=== PATIENT | female | born 1970 | race Hispanic/Latino ===

== ENCOUNTER 2018-10-24 01:00 | Emergency (ER) | payer OTHER ==
--- OUTSIDE RECORDS SUMMARY | 2018-10-24 01:02 | XMS REPORT ---
:1970 [facility] Address [address] [place] [address] Care Team Providers Name Role Phone Unavailable Unavailable Unavailable Problems This patient has no known problems. Allergies, Adverse Reactions, Alerts This patient has no known allergies or adverse reactions. Medications This patient has no known medications.
--- NOTE | 2018-10-24 02:20 | ER ---
Nurse's Notes [facility] Name: Shavonne Olmos Age: 48 yrs Sex: Female : 1970 Arrival Date: 10/24/2018 Time: 01:03 Bed Waiting Private MD: Darius Albert E Diagnosis: Presentation: 10/24 01:08 Presenting complaint: Patient states: "I haven't taken my blood pressure medication in jd3 2 days because I ran out. I am not having high blood pressure and feeling short of breath with my chronic conditions.". Transition of care: patient was not received from another setting of care. Onset of symptoms was October 24, 2018. Risk Assessment: Do you want to hurt yourself or someone else? Patient reports no desire to harm self or others. Initial Sepsis Screen: Does the patient meet any 2 criteria? No. Patient's initial sepsis screen is negative. Does the patient have a suspected source of infection? No. Patient's initial sepsis screen is negative. Care prior to arrival: None. 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 - Social history:: Smoking status: Patient/guardian denies using tobacco. - Ebola Screening: : Patient negative for fever greater than or equal to 101.5 degrees Fahrenheit, and additional compatible Ebola Virus Disease symptoms. Assessment: 02:18 General: Pt states "I don't want to be seen by a doctor. I just wanted my blood ed1 pressure checked. I am okay. I am going to go home and go to sleep.". Vital Signs: 01:10 BP 165 / 100; Pulse 75; Resp 17 S; Temp 98.3(O); Pulse Ox 100% on R/A; Weight 99.79 kg jd3 (R); Height 5 ft. 2 in. (157.48 cm) (R); Pain 6/10; 01:10 Body Mass Index 40.24 (99.79 kg, 157.48 cm) jd3 ED Course: 01:03 Patient arrived in ED. ds1 01:03 Darius Albert MD is Private Physician. ds1 01:09 Triage completed. jd3 01:11 Arm band placed on. jd3 Administered Medications: No medications were administered Outcome: 02:18 Eloped from patient exam room, before seeing physician Time discovered patient gone: ed1 October 24, 2018 at 02:19 02:18 Condition: stable 02:18 Discharge instructions given to patient. 02:20 Patient left the ED. ed1 Signatures: Jyotsna Johnson ds1 Nancy Sanchez RN RN ed1 Cb Goode RN RN jd3 Corrections: (The following items were deleted from the chart) 01:13 01:08 Presenting complaint: Patient states: "I haven't taken my blood pressure jd3 medication in 2 days because I ran out. I am not having high blood pressure and chest pains." jd3
[2018-10-24 02:24] VITALS: BP 165/100; TEMP 98.3; O2SAT 100
== END 2018-10-24 02:20 | disposition left against medical advice (07) ==
LOC: ER 01:00
DX: Z53.21 Procedure and treatment not carried out due to patient leaving prior to being seen by health care provider (principal); I10 Essential (primary) hypertension; F41.9 Anxiety disorder, unspecified
CPT/HCPCS: 99281

== ENCOUNTER 2019-01-28 14:45 | Observation (INO) | payer OTHER, SELFPAY ==
--- OUTSIDE RECORDS SUMMARY | 2019-01-28 14:48 | XMS REPORT ---
:1970 [facility] Address [address] [place] [address] Dr. [address] [place] [id number] Care Team Providers Name Role Phone Unavailable Unavailable Unavailable Problems This patient has no known problems. Allergies, Adverse Reactions, Alerts This patient has no known allergies or adverse reactions. Medications This patient has no known medications.
[2019-01-28 15:43] LABS: Absolute Lymphocytes (CBC) 2.1 K/uL (0.7-4.9); Basophils % 0.3 % (0-1.3); Eosinophils % 2.1 % (0-4.4); Hematocrit 38.7 % (36.0-45.0); MPV 9.2 fL (7.6-11.3); RBC Red Blood Cell Count 4.59 M/uL (3.86-4.86)
[2019-01-28 15:47] LABS: Urine Blood NEGATIVE (NEG); Urine Glucose NEGATIVE (NEG); Urine Protein NEGATIVE (NEG); Urine pH 5.5 (5.0-7.0)
[2019-01-28] MEDS ORDERED: ONDANSETRON 4 MG/2 ML VIAL ONE ×2 (16:00→18:34)
[2019-01-28] MEDS ORDERED: MORPHINE 4 MG/ML SYR ONE ×2 (16:00→17:39)
[2019-01-28] MEDS ORDERED: NA CHLORIDE 0.9% 1,000 ML ONE (16:00)
[2019-01-28] MEDS ORDERED: FAMOTIDINE 20 MG/2 ML VIAL IV ONE (16:00)
[2019-01-28] MEDS ORDERED: PIPER/TAZO/NS 3.375gm 3.375 GM/100 ML BAG ONE (16:01)
[2019-01-28 16:14] LABS: ALT/SGPT 35 U/L (12-78); AST/SGOT 17 U/L (15-37); Albumin 3.6 g/dL (3.4-5.0); Alkaline Phosphatase 65 U/L (45-117); BUN Blood Urea Nitrogen 23 mg/dL (7-18); Bicarbonate 30 mmol/L (21-32); Bilirubin Direct < 0.1 mg/dL (0-0.2); Bilirubin Total 0.3 mg/dL (0.2-1.0); Glucose Level 170 mg/dL (74-106); Lipase 146 U/L (73-393); Magnesium 2.4 mg/dL (1.8-2.4); NT PRO-BNP 147 pg/mL (<125); Potassium 3.6 mmol/L (3.5-5.1); Protein, Total 7.6 g/dL (6.4-8.2); Sodium Level 143 mmol/L (136-145); Troponin (Emerg Dept Use Only) < 0.02 ng/mL (0.0-0.045)
--- NOTE | 2019-01-28 16:28 | RAD REPORT ---
EXAM DESCRIPTION: RAD - Chest Single View - 01/28/2019 4:06 pm CLINICAL HISTORY: Abdominal pain, abdominal distention COMPARISON: July 2018 TECHNIQUE: AP portable chest image was obtained 1559 hours . FINDINGS: Lungs are clear. Lung markings match comparison. Heart and vasculature are normal. No shonna urable pleural effusion and no pneumothorax. No acute bony abnormality seen. No acute aortic findings suspected. IMPRESSION: No acute cardiopulmonary process. No significant interval change
--- NOTE | 2019-01-28 16:39 | ER ---
Nurse's Notes [facility] Name: Shavonne Olmos Age: 48 yrs Sex: Female : 1970 Arrival Date: 01/28/2019 Time: 14:[address] Private MD: Darius Albert E Diagnosis: Abdominal tenderness;Cholelithiasis;Cholecystitis;Obesity, unspecified Presentation: 01/28 14:53 Presenting complaint: Patient states: "I HAD AN ULTRASOUND WITH DR COVARRUBIAS AND I HAVE bp GALLSTONES. I CAN'T TAKE THE PAIN ANYMORE.". Transition of care: patient was not received from another setting of care. Onset of symptoms is unknown. Risk Assessment: Do you want to hurt yourself or someone else? Patient reports no desire to harm self or others. Initial Sepsis Screen: Does the patient meet any 2 criteria? No. Patient's initial sepsis screen is negative. Does the patient have a suspected source of infection? No. Patient's initial sepsis screen is negative. Care prior to arrival: None. 14:53 Method Of Arrival: Ambulatory bp 14:53 Acuity: SONAM 3 bp Triage Assessment: 18:59 General: Behavior is calm, cooperative. 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 - Social history:: Smoking status: Patient/guardian denies using tobacco. - Ebola Screening: : No symptoms or risks identified at this time. - Family history:: not pertinent. Screenin:42 Abuse screen: Denies threats or abuse. Denies injuries from another. Nutritional iw screening: No deficits noted. Tuberculosis screening: No symptoms or risk factors identified. Fall Risk IV access (20 points). Assessment: 16:00 General: Appears uncomfortable. Pain: Complains of pain in epigastric area, right upper iw quadrant and left upper quadrant. Neuro: Level of Consciousness is awake, alert, obeys commands, Oriented to person, place, time, situation, Moves all extremities. Full function. Cardiovascular: Capillary refill < 3 seconds in bilateral fingers Patient's skin is warm and dry. Respiratory: Respiratory effort is even, unlabored, Respiratory pattern is regular, symmetrical. GI: Bowel sounds present X 4 quads. Abd is soft X 4 quads Abdomen is tender to palpation in right upper quadrant and left upper quadrant Reports upper abdominal pain. : Denies burning with urination. Derm: Skin is intact, is healthy with good turgor. Musculoskeletal: Range of motion: intact in all extremities. 17:30 Reassessment: Patient appears in no apparent distress at this time. Patient and/or iw family updated on plan of care and expected duration. Pain level reassessed. Patient is alert, oriented x 3, equal unlabored respirations, skin warm/dry/pink. pt still c/o upper abd pain 8/10, Dr. Reese notified, verbal order for repeat morphine, given now. 18:59 Reassessment: Patient appears in no apparent distress at this time. Patient and/or iw family updated on plan of care and expected duration. Pain level reassessed. Patient is alert, oriented x 3, equal unlabored respirations, skin warm/dry/pink. Vital Signs: 14:54 BP 105 / 66; Pulse 63; Resp 18; Temp 98.4; Pulse Ox 97% ; Weight 102.97 kg; Height 5 bp ft. 1 in. (154.94 cm); 17:41 BP 135 / 69; Pulse 59; Resp 16 S; Pulse Ox 99% on R/A; Pain 8/10; iw 19:00 BP 118 / 97; Pulse 64; Resp 16; Pulse Ox 100% on R/A; Pain 7/10; iw 20:00 BP 116 / 96; Pulse 66; Resp 15; Temp 98; Pulse Ox 98% on R/A; rv 21:00 BP 114 / 97; Pulse 65; Resp 16; Pulse Ox 98% on R/A; rv 21:30 BP 121 / 76; Pulse 66; Resp 17; Pulse Ox 98% on R/A; rv 14:54 Body Mass Index 42.89 (102.97 kg, 154.94 cm) bp ED Course: 14:48 Patient arrived in ED. 14:48 Darius Albert MD is Private Physician. mr 14:53 Triage completed. bp 14:54 Arm band placed on right wrist. bp 14:56 Rell Reese MD is Attending Physician. millie 15:00 Patient has correct armband on for positive identification. iw 15:03 Rachel Palacios, RN is Primary Nurse. iw 15:27 Missed attempt(s): 20 gauge in left antecubital area. lt1 15:28 Initial lab(s) drawn, by me, sent to lab. Inserted saline lock: 22 gauge in right lt1 antecubital area, using aseptic technique. 15:35 EKG done, by distribution engineering technologist. lt1 16:09 Chest Single View In Process Unspecified. EDMS 16:[address] nj 16:37 Romelia Licea MD is Hospitalizing Provider. millie 16:39 CT Abd/Pelvis - IV Contrast Only In Process Unspecified. EDMS 16:39 CT completed. Patient tolerated procedure well. Patient moved back from CT. nj 18:58 No provider procedures requiring assistance completed. Patient admitted, IV remains in iw place. Administered Medications: 16:13 Drug: NS 0.9% 1000 ml Route: IV; Rate: 1 bolus; Site: right antecubital; iw 16:13 Drug: morphine 4 mg Route: IVP; Site: right antecubital; iw 20:27 Follow up: Response: Pain is decreased rv 16:14 Drug: Pepcid 20 mg Route: IVP; Site: right antecubital; iw 20:26 Follow up: Response: No adverse reaction rv 16:14 Drug: Zosyn 3.375 grams Route: IVPB; Infused Over: 60 mins; Site: right antecubital; iw 20:26 Follow up: IV Status: Completed infusion rv 16:16 Drug: Zofran 4 mg Route: IVP; Site: right antecubital; iw 20:27 Follow up: Response: No adverse reaction rv 17:40 Drug: morphine 4 mg Route: IVP; Site: right antecubital; iw 20:26 Follow up: Response: No adverse reaction rv 18:22 Drug: Zofran 4 mg Route: IVP; Site: right antecubital; ae4 20:26 Follow up: Response: No adverse reaction rv Outcome: 16:38 Decision to Hospitalize by Provider. millie 21:51 Admitted to Med/surg accompanied by tech, via wheelchair, room 206, with chart, Report rv called to ko leung 21:51 Condition: stable 21:51 Instructed on the need for admit. 21:51 Patient left the ED. rv Signatures: Dispatcher [employer] EDMS Rell Reese MD MD cha Rivera, Mary mr Rachel Palacios, RN RN Axel Mccollum Brian, RN RN Suleiman Iraheta RN RN Farrah Malone 1 Earnest Miller RN RN ae4
--- NOTE | 2019-01-28 16:39 | EDPHYS ---
Physician Documentation [facility] Name: Shavonne Olmos Age: 48 yrs Sex: Female : 1970 Arrival Date: 01/28/2019 Time: 14:[address] Private MD: Darius Albert E ED Physician Rell Reese HPI: 01/28 15:23 This 48 yrs old Female presents to ER via Ambulatory with complaints of millie Abdominal Pain. 15:23 The patient presents with abdominal pain in the epigastric area, in the upper abdomen. millie Onset: The symptoms/episode began/occurred 2 day(s) ago. The symptoms radiate to Associated signs and symptoms: none. Modifying factors: The symptoms are alleviated by nothing, the symptoms are aggravated by nothing. Severity of pain: At its worst the pain was mild moderate in the emergency department the pain is unchanged. The patient has not experienced similar symptoms in the past. 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 - Social history:: Smoking status: Patient/guardian denies using tobacco. - Ebola Screening: : No symptoms or risks identified at this time. - Family history:: not pertinent. ROS: 15:23 Constitutional: Negative for fever, chills, and weight loss, Eyes: Negative for injury, millie pain, redness, and discharge, ENT: Negative for injury, pain, and discharge, Neck: Negative for injury, pain, and swelling, Cardiovascular: Negative for chest pain, palpitations, and edema, Respiratory: Negative for shortness of breath, cough, wheezing, and pleuritic chest pain, Back: Negative for injury and pain, : Negative for injury, bleeding, discharge, and swelling, MS/Extremity: Negative for injury and deformity, Skin: Negative for injury, rash, and discoloration, Neuro: Negative for headache, weakness, numbness, tingling, and seizure, Psych: Negative for depression, anxiety, suicide ideation, homicidal ideation, and hallucinations, Allergy/Immunology: Negative for hives, rash, and allergies, Endocrine: Negative for neck swelling, polydipsia, polyuria, polyphagia, and marked weight changes, Hematologic/Lymphatic: Negative for swollen nodes, abnormal bleeding, and unusual bruising. 15:23 Abdomen/GI: Positive for abdominal pain, of the epigastric area, right upper quadrant and left upper quadrant. Exam: 15:23 Constitutional: This is a well developed, well nourished patient who is awake, alert, millie and in no acute distress. Head/Face: Normocephalic, atraumatic. Eyes: Pupils equal round and reactive to light, extra-ocular motions intact. Lids and lashes normal. Conjunctiva and sclera are non-icteric and not injected. Cornea within normal limits. Periorbital areas with no swelling, redness, or edema. ENT: Nares patent. No nasal discharge, no septal abnormalities noted. Tympanic membranes are normal and external auditory canals are clear. Oropharynx with no redness, swelling, or masses, exudates, or evidence of obstruction, uvula midline. Mucous membranes moist. Neck: Trachea midline, no thyromegaly or masses palpated, and no cervical lymphadenopathy. Supple, full range of motion without nuchal rigidity, or vertebral point tenderness. No Meningismus. Chest/axilla: Normal chest wall appearance and motion. Nontender with no deformity. No lesions are appreciated. Cardiovascular: Regular rate and rhythm with a normal S1 and S2. No gallops, murmurs, or rubs. Normal PMI, no JVD. No pulse deficits. Respiratory: Lungs have equal breath sounds bilaterally, clear to auscultation and percussion. No rales, rhonchi or wheezes noted. No increased work of breathing, no retractions or nasal flaring. Back: No spinal tenderness. No costovertebral tenderness. Full range of motion. Female : Normal external genitalia. Skin: Warm, dry with normal turgor. Normal color with no rashes, no lesions, and no evidence of cellulitis. MS/ Extremity: Pulses equal, no cyanosis. Neurovascular intact. Full, normal range of motion. Neuro: Awake and alert, GCS 15, oriented to person, place, time, and situation. Cranial nerves II-XII grossly intact. Motor strength 5/5 in all extremities. Sensory grossly intact. Cerebellar exam normal. Normal gait. Psych: Awake, alert, with orientation to person, place and time. Behavior, mood, and affect are within normal limits. 15:23 Abdomen/GI: Inspection: distension, Bowel sounds: normal, Palpation: mild abdominal tenderness, moderate abdominal tenderness, in the epigastric area, right upper quadrant and left upper quadrant, Liver: no appreciated palpable abnormalities, Hernia: not appreciated. Vital Signs: 14:54 BP 105 / 66; Pulse 63; Resp 18; Temp 98.4; Pulse Ox 97% ; Weight 102.97 kg; Height 5 bp ft. 1 in. (154.94 cm); 17:41 BP 135 / 69; Pulse 59; Resp 16 S; Pulse Ox 99% on R/A; Pain 8/10; iw 19:00 BP 118 / 97; Pulse 64; Resp 16; Pulse Ox 100% on R/A; Pain 7/10; iw 20:00 BP 116 / 96; Pulse 66; Resp 15; Temp 98; Pulse Ox 98% on R/A; rv 21:00 BP 114 / 97; Pulse 65; Resp 16; Pulse Ox 98% on R/A; rv 21:30 BP 121 / 76; Pulse 66; Resp 17; Pulse Ox 98% on R/A; rv 14:54 Body Mass Index 42.89 (102.97 kg, 154.94 cm) bp MDM: 14:56 Patient medically screened. [facility] 01/28 14:58 Order name: Basic Metabolic Panel; Complete Time: 16:35 [facility] 01/28 14:58 Order name: CBC with Diff; Complete Time: 16:35 [facility] 01/28 14:58 Order name: LFT's; Complete Time: 16:35 [facility] 01/28 14:58 Order name: Magnesium; Complete Time: 16:35 [facility] 01/28 14:58 Order name: NT PRO-BNP; Complete Time: 16:35 [facility] 01/28 14:58 Order name: PT-INR; Complete Time: 16:35 [facility] 01/28 14:58 Order name: Troponin (emerg Dept Use Only); Complete Time: 16:35 [facility] 01/28 14:58 Order name: Lipase; Complete Time: 16:35 [facility] 01/28 15:22 Order name: Urine --Ancillary (enter results); Complete Time: 16:35 ms 01/28 15:22 Order name: Urine Dipstick--Ancillary (enter results); Complete Time: 16:35 ms 01/28 15:27 Order name: CT Abd/Pelvis - IV Contrast Only [facility] 01/28 15:29 Order name: Chest Single View; Complete Time: 16:35 EDMS 01/28 17:23 Order name: Hepatobiliary System W/ Ph EDUT 01/28 14:58 Order name: EKG; Complete Time: 15:19 [facility] 01/28 14:58 Order name: Cardiac monitoring; Complete Time: 15:29 [facility] 01/28 14:58 Order name: EKG - Nurse/Tech; Complete Time: 15:35 [facility] 01/28 14:58 Order name: IV Saline Lock; Complete Time: 15:28 [facility] 01/28 14:58 Order name: Labs collected and sent; Complete Time: 15:35 [facility] 01/28 14:58 Order name: O2 Per Protocol; Complete Time: 15:29 [facility] 01/28 14:58 Order name: O2 Sat Monitoring; Complete Time: 15:29 [facility] 01/28 14:58 Order name: Urine Dipstick-Ancillary (obtain specimen); Complete Time: 15:28 [facility] 01/28 14:58 Order name: Urine Test (obtain specimen); Complete Time: 15:28 [facility] Administered Medications: 16:13 Drug: NS 0.9% 1000 ml Route: IV; Rate: 1 bolus; Site: right antecubital; iw 16:13 Drug: morphine 4 mg Route: IVP; Site: right antecubital; iw 20:27 Follow up: Response: Pain is decreased rv 16:14 Drug: Pepcid 20 mg Route: IVP; Site: right antecubital; iw 20:26 Follow up: Response: No adverse reaction rv 16:14 Drug: Zosyn 3.375 grams Route: IVPB; Infused Over: 60 mins; Site: right antecubital; iw 20:26 Follow up: IV Status: Completed infusion rv 16:16 Drug: Zofran 4 mg Route: IVP; Site: right antecubital; iw 20:27 Follow up: Response: No adverse reaction rv 17:40 Drug: morphine 4 mg Route: IVP; Site: right antecubital; iw 20:26 Follow up: Response: No adverse reaction rv 18:22 Drug: Zofran 4 mg Route: IVP; Site: right antecubital; ae4 20:26 Follow up: Response: No adverse reaction rv Disposition: 01/28/19 16:38 Hospitalization ordered by Romelia Licea for Inpatient Admission. Preliminary diagnosis are Abdominal tenderness, Cholelithiasis, Cholecystitis, Obesity, unspecified. - Bed requested for Telemetry/MedSurg (Inpatient). - Status is Inpatient Admission. rv - Condition is Fair. - Problem is new. - Symptoms have improved. UTI on Admission? No Signatures: Dispatcher [employer] EDUT Purvi Quintana, RN RN dw Rell Reese MD MD cha Williams, Irene, RN SLADE iw Alexy Gonzalez RN RN Suleiman Iraheta, RN RN rv Earnest Miller RN RN ae4 Corrections: (The following items were deleted from the chart) 16:12 15:19 Chest Single View+RAD.RAD.BRZ ordered. [facility] 18:47 16:38 Hospitalization Ordered by Romelia Licea MD for Inpatient Admission. Preliminary diagnosis is Abdominal tenderness; Cholelithiasis; Cholecystitis; Obesity, unspecified. Bed requested for Telemetry/MedSurg (Inpatient). Status is Inpatient Admission. Condition is Fair. Problem is new. Symptoms have improved. UTI on Admission? No. [facility] 21:51 18:47 01/28/2019 16:38 Hospitalization Ordered by Romelia Licea MD for Inpatient rv Admission. Preliminary diagnosis is Abdominal tenderness; Cholelithiasis; Cholecystitis; Obesity, unspecified. Bed requested for Telemetry/MedSurg (Inpatient). Status is Inpatient Admission. Condition is Fair. Problem is new. Symptoms have improved. UTI on Admission? No. dw
--- NOTE | 2019-01-28 18:03 | RAD REPORT ---
EXAM DESCRIPTION: CT - Abdomen Pelvis W Contrast - 01/28/2019 4:39 pm CLINICAL HISTORY: Abdominal pain, recent gallstone diagnosis COMPARISON: Ultrasound January 14 TECHNIQUE: Biphasic, helical CT imaging of the abdomen and pelvis was performed following 100 ml non -ionic IV contrast. Oral contrast was given. All CT scans are performed using dose optimization technique as appropriate and may include automated exposure control or mA/KV adjustment according to patient size. FINDINGS: No suspicious findings in the lung bases. Fatty infiltration of the liver is present. No focal liver lesion. Spleen and pancreas show no suspic ious findings. Patient has been diagnosed with gallstones. No active gallbladder process evident. The gallstones are occult on CT imaging. No biliary tree dilatation. Symmetric renal function is seen with no hydronephrosis or suspicious renal mass. No pyelonephritis o r acute parenchymal process. No bladder abnormalities. No adrenal abnormalities. No dilated bowel loops or bowel wall thickening. No free air, free fluid or inflammatory stranding. No hernia, mass or bulky lymphadenopathy. Uterus and ovaries show no suspicious findings. No suspicious bony findings. Technical problems precluded initiating report at the time of the study. Findings were telephoned to the referring clinician. IMPRESSION: Patient has known cholelithiasis. These stones are occult on CT imaging. No active gall bladder or biliary tree process. Fatty infiltration of the liver.
[2019-01-28 21:37] VITALS: BMI 45.1
[2019-01-28] MEDS ORDERED: ONDANSETRON 4 MG/2 ML VIAL IV PRN (23:42)
[2019-01-28] MEDS ORDERED: MORPHINE 2 MG/ML SYR IV PRN (23:42)
[2019-01-29] MEDS ORDERED: PIPERACIL/TAZO 3.375 GM VIAL IV ONE (00:51)
[2019-01-29] MEDS ORDERED: NA CHLORIDE 0.9% 50 ML ONE (00:55)
[2019-01-29] MEDS: PIPER/TAZO/NS 3.375gm 3.375 GM/100 ML BAG IVPB SCH ×2 (01:00→10:16)
[2019-01-29] MEDS: D5.45NS W/KCL 20MEQ 1,000 ML IV SCH ×2 (02:00→09:42)
--- NOTE | 2019-01-29 02:16 | HP ---
Date of Admission: 01/28/2019 Chief Complaint: Abdominal pain. Consultants: Dr. Corrales, General Surgery. Primary Care Physician: Dr. Albert. History Of Present Illness: The patient is a 48-year-old female with past medical history of morbid obesity, hypertension, generalized anxiety disorder, gastroesophageal reflux disease, sciatica with k nown history of cholelithiasis, comes in with acute right upper quadrant abdominal pain, worsened wit h fried fatty foods. The patient's symptoms are intermittent, progressively worsening and moderate i ntensity. The patient does report radiation to her back and between the shoulder blades. No fevers, chills. The patient does report some nausea. No vomiting. In the ER, her workup revealed normal W BC count. Liver enzymes are within normal limits. Ultrasound of the abdomen was done on January 15 mecca wing multi-stone cholelithiasis with no gallbladder or biliary tree abnormality. Diffuse fatty infil tration of the liver. CT scan of the abdomen and pelvis in the ER showed that the patient has known cholelithiasis. These stones are occult on CT imaging. No active gallbladder or biliary tree proces s. Fatty infiltration of the liver. The patient was given IV fluids, pain medications, and then ref erred for admission. When seen in the ER, she was awake, alert, oriented x3, in some mild distress. Past Medical History: Hypertension, generalized anxiety disorder, gastroesophageal reflux disease, s ciatica. Surgical History: x2. Allergies: NO KNOWN DRUG ALLERGIES. Medications: List reviewed. Social History: The patient denies any tobacco use. Drinks alcohol weekly. No illicit drug use. T he patient has good social support. , has 2 kids. Family History: Positive for hypertension, diabetes. Brother of [place]. Review of Systems: Ten-point system reviewed, negative except as per HPI. Physical Examination: Vital Signs: Blood pressure 105/66, pulse 63, respirations 18, temperature 98.4, BMI 42.8, O2 97% on room air. General: Awake, alert, oriented x3. Morbidly obese female, in mild distress due to pain. HEENT: Normocephalic, atraumatic. PERRLA. EOMI. Moist mucous membranes. Oropharynx is clear. No rmal dentition. Conjunctivae are anicteric. Neck: Supple. No JVD. Trachea midline. CV: S1, S2. Sinus bradycardia. Peripheral pulses present. Respiratory: Moving air well bilaterally. No wheezing or stridor. No use of accessory muscles. Gastrointestinal: Abdomen is soft. Tenderness to palpation in the right upper quadrant. No rebound or guarding. Positive bowel sounds. Extremities: No clubbing, cyanosis, or edema. No calf tenderness. Neuro: Cranial nerves 2-12 intact grossly. No focal neurological deficit. Speech is normal. Skin: No rashes. Normal skin turgor. Psych: Mood is somewhat anxious. Affect is full. Insight and judgment are good. Laboratory Data: Sodium 143, potassium 3.6, chloride 105, CO2 30, BUN 23, creatinine 0.99, glucose 1 70, calcium 8.6, magnesium 2.4. Total bilirubin 0.3, AST 17, ALT 35, alkaline phosphatase 65. Tropo debi less than 0.02, BNP 147. Lipase 146. INR 1. WBC 7.9, H and H 13.1 and 38.7, platelets 316. UA is negative. Urine test is also negative. Chest x-ray, personally reviewed, shows no acu te cardiopulmonary process. No significant interval change. CT scan of the abdomen and pelvis shows the patient has known cholelithiasis. Stones are occult on CT imaging. No active gallbladder or bi liary tree process. Fatty infiltration of the liver. Assessment And Plan: A 48-year-old female with: 1.Acute cholecystitis. We will start her on IV antibiotics. Keep n.p.o. Dr. Corrales with General S urgery has been consulted. IV pain medications. 2.Fatty liver disease. 3.The patient has hypertension. We will resume home medications as appropriate. 4.Generalized anxiety disorder. The patient is on chronic benzodiazepines. 5.Gastroesophageal reflux disease, on PPI. 6.Sciatica, on gabapentin. 7.Morbid obesity, BMI 42. Admit the patient to med-surg, place as inpatient. Length of stay, greater than 2 midnights. We dallin mendenhall SCDs for DVT prophylaxis. No chemical anticoagulation in anticipation of possible surgery. /ARIC Voice ID: [id number]
[2019-01-29 05:49] VITALS: O2SAT 96
--- NOTE | 2019-01-29 08:45 | RAD REPORT ---
EXAM DESCRIPTION: NM - Hepatobiliary System W/ Ph - 01/29/2019 8:27 am CLINICAL HISTORY: Abd Pain COMPARISON: Abdomen Pelvis W Contrast dated 01/28/2019; Abdomen Exam Complete dated 01/14/2019 TECHNIQUE: The patient was administered 6.4 mCi Tc99m Choletec. Imaging of the right upper quadrant was performed initially for up to 60 minutes. Gallbladder ejection fraction determination was then performed utilizing synthetic 6.4 mgm CCK over a slow 30 minute infusion. FINDINGS: Normal hepatic uptake and excretion with appropriate clearance of background blood pool ac tivity. Normal visualization of biliary and small bowel activity. Gallbladder visualizes within normal time limits. The calculated ejection fraction is 69% (normal gre ater than 35%). Subjective pain reported by the patient: Pre-procedure - 5/10 During or subsequent to synthetic CCK infusion - 10 with nausea IMPRESSION: Patient cystic duct and patent sphincter of Oddi. No delay in visualization of the gallb ladder, biliary tree, or duodenum. Ejection fraction is 69% (normal greater than 35%). Subjective patient pain assessment as detailed above.
--- NOTE | 2019-01-29 09:58 | EKG ---
Test Date: 2019-01-28 Test Time: 15:34:58 Lock Master: DENITA MEASUREMENT RESULTS: Intervals: Rate: 54 CO: 138 QRSD: 80 QT: 456 QTc: 432 Sentinel: P: 50 CO: 138 QRS: 21 T: 26 INTERPRETIVE STATEMENTS: Sinus bradycardia Otherwise normal ECG Compared to ECG 10/01/2017 08:44:46 Sinus rhythm no longer present Left-axis deviation no longer present Prolonged QT interval no longer present Electronically Signed On 01-29-19 09:57:15 CDT by Brian Navarrete
[2019-01-29 10:10] LABS: Absolute Lymphocytes (CBC) 1.4 K/uL (0.7-4.9); Basophils % 0.3 % (0-1.3); Eosinophils % 2.6 % (0-4.4); Hematocrit 38.1 % (36.0-45.0); Lymphocytes % 23.5 % (15.3-44.8); MPV 9.5 fL (7.6-11.3); Monocytes % 7.4 % (3.3-12.3); RBC Red Blood Cell Count 4.51 M/uL (3.86-4.86)
[2019-01-29] MEDS ORDERED: ZOLPIDEM TARTRATE 10 MG TABLET PO PRN (10:29)
[2019-01-29] MEDS ORDERED: ALPRAZOLAM 1 MG TABLET PO SCH (11:00)
[2019-01-29 11:27] LABS: Albumin 3.6 g/dL (3.4-5.0); Bilirubin Total 0.4 mg/dL (0.2-1.0); Protein, Total 7.3 g/dL (6.4-8.2)
[2019-01-29 11:29] LABS: Potassium 3.7 mmol/L (3.5-5.1)
[2019-01-29 14:59] VITALS: BP 135/58; TEMP 98.3
--- NOTE | 2019-01-29 16:59 | CON ---
Date of Consultation: 01/29/2019 Brief History Of Present Illness: The patient is a 48-year-old female with morbid obesity, hypertens ion, general anxiety disorder, GERD with ulcers diagnosed by EGD with Dr. Alston, kedar and no his tory of cholelithiasis, who comes to the hospital with epigastric and right upper quadrant abdominal pain, radiation through to the back. She states worse at sometimes with fried foods, but she has bee n eating greasy foods for some time and has a very poor diet generally and she is unsure of the exact food triggers. She drinks sodas and believes that this also may be a trigger at times and the pain occurs typically 20-30 minutes after meals and primarily epigastric with some radiation to the right upper quadrant and back to her shoulder blades. She says it feels similar to the times before when s he was diagnosed with ulcers in the past. She had an ultrasound performed on January [address] one cholelithiasis with no gallbladder wall or biliary tree abnormality and diffuse fatty infiltratio n of liver. CT scan of the abdomen and pelvis was done in the ER as well. Past Medical History: As above, hypertension, generalized anxiety disorder, GERD, sciatica, ulcers. Past Surgical History: x2. Allergies: NO KNOWN DRUG ALLERGIES. Medications: Reviewed. Social History: She denies smoking, alcohol. She drinks weekly, sometimes more often. She denies r ecreational drug use. She is currently trying to get disability for her psychiatric issues. Family History: Positive for hypertension, diabetes. A brother of an [place]. Review of Systems: A 10-point review of systems other than HPI, denies. Physical Examination: Vital Signs: At the time of examination, her BMI is 45.2, blood pressure 148/78, pulse 65, respirato ry rate 18, temperature is 98.1. General: She is awake, alert, and oriented. Psychiatric: Appropriate and conversive. HEENT: She is normocephalic. Sclerae icteric. Mucous membranes are moist. Oropharynx is clear. Neck: Supple. No JVD. Chest: Normal expansion and excursion. Cardiovascular: Regular rate and rhythm. Pulmonary: Clear to auscultation bilaterally. Abdomen: Soft, nontender, nondistended. No rebound. No guarding. No focal peritonitis. Harden's sign negative. Extremities: No clubbing, cyanosis, or edema. Skin: Warm and dry. Laboratory Data: White blood count 6.0, hemoglobin is 12.7, hematocrit 38.1, platelet count is 264. PT 11.8, INR 1.0. Sodium 142, potassium 3.7, chloride 106, carbon dioxide 28, BUN 19, creatinine 1, glucose is 176. Her total bilirubin is normal at 0.4. AST normal at 28, ALT normal at 42, alkaline phosphatase is 62. Her lipase is normal at 146. She had imaging performed, which included a CT sca n of the abdomen and pelvis on 01/28, which is officially read as patient has known cholelithiasis. The stones could be occult. No active gallbladder or biliary tree findings. Fatty infiltration of l iver confirmed. She had a HIDA scan, which was negative on 01/28/2019, which is officially read as p atent cystic duct and patent sphincter of Oddi. No delay in visualization the gallbladder, biliary tree or duodenum. Ejec tion fraction 69%. Subjective pain was between 5/10 and 8/10 throughout the procedure. Assessment And Plan: This is a 48-year-old female who comes in with epigastric abdominal pain of unc ertain etiology. 1.IV fluid hydration. 2.Protonix and PPI coverage. 3.Recommend GI consultation. 4.The patient has no acute need for surgical intervention for cholecystectomy at this time; however, she may indeed need a further evaluation on an outpatient basis. I have explained the risks, benefi ts, and alternatives of the above stated plan. The patient agrees to proceed as indicated. Thank you for this interesting consult. HAYDEN/ARIC Voice ID: [id number] Report ID: [id number]
[2019-01-29] MEDS ORDERED: GABAPENTIN 300 MG CAP PO SCH (21:00)
[2019-01-29] MEDS ORDERED: PREGABALIN 75 MG CAP PO SCH (21:00)
--- NOTE | 2019-01-30 00:15 | DS ---
Date of Discharge: 01/29/2019 Consultants: Dr. Corrales with General Surgery. Procedures: None. Discharge Diagnoses: 1.Acute cholelithiasis without obstruction or cholecystitis. 2.Fatty liver disease. 3.Morbid obesity. 4.Essential hypertension. 5.Generalized anxiety disorder. 6.GERD without esophagitis. 7.Sciatica. Hospital Course: The patient is a 48-year-old female with past medical history of morbid obesity, hy pertension, generalized anxiety disorder, GERD, sciatica, comes in with known history of cholelithias is, complaining of abdominal pain. The patient's workup showed normal WBCs. Ultrasound on January 15 h ad showed multiple cholelithiasis, however, no gallbladder or biliary tree abnormality. CT scan was done in the ER, showed cholelithiasis. There was no active gallbladder biliary tree process. Fatty infiltration of the liver was seen. Stones can be occult on CT imaging. The patient was started on IV antibiotics. General Surgery was consulted. HIDA scan was done, which showed normal EF. The pat ient was then restarted on GI soft diet, which she was able to tolerate. She did well over the cours e of the hospital stay. She remained afebrile. There were no signs of sepsis. Blood pressure remai ebony stable. White count also remained stable. The patient was then cleared for discharge from surgi marlo standpoint to follow up with Dr. Corrales in 2 weeks, return to ER for worsening condition. Follow Up: Follow up with PCP in 2-3 days. Diet: [place]. No fried or fatty foods. Activity: As tolerated. Medications: As per medication reconciliation list. Physical Examination: General: Awake, alert, oriented x3. Morbidly obese female. CV: S1, S2. Respiratory: Moving air well bilaterally. Abdomen: Soft, nontender, nondistended. Positive bowel sounds. Extremities: No clubbing, cyanosis, edema. Neuro: Nonfocal. The patient has been extensively counseled regarding her weight. She needs to have bariatric surgery done to decrease her mortality rate from morbid obesity. She was counseled regarding diet and exerc ise changes. She voiced understanding. /ARIC Voice ID: [id number] Report ID: [id number]
[2019-01-30] MEDS ORDERED: PANTOPRAZOLE 40MG TABLET PO SCH (06:30)
[2019-01-30] MEDS ORDERED: LISINOPRIL 20 MG TAB PO SCH (09:00)
[2019-01-30] MEDS ORDERED: MEDROXYPROGESTERONE 5 MG TAB PO SCH (09:00)
[2019-01-30] MEDS ORDERED: hydroCHLOROthiazide 25 MG TAB PO SCH (09:00)
[2019-01-30] MEDS ORDERED: ATENOLOL 50 MG TAB PO SCH (09:00)
== END 2019-01-29 15:45 | disposition home or self-care (01) ==
LOC: ER 14:45 → ERHOLD 17:41 → INTOOBSV 17:41 → 2ND 21:15
PROVIDERS: ADMIT Family Medicine; ATTEND Family Medicine
DX: K80.20 Calculus of gallbladder without cholecystitis without obstruction (principal); K76.0 Fatty (change of) liver, not elsewhere classified; I10 Essential (primary) hypertension; K21.9 Gastro-esophageal reflux disease without esophagitis; F41.1 Generalized anxiety disorder; R10.13 Epigastric pain; E66.01 Morbid (severe) obesity due to excess calories; Z68.41 Body mass index [BMI] 40.0-44.9, adult; M54.30 Sciatica, unspecified side; R00.1 Bradycardia, unspecified; Z79.899 Other long term (current) drug therapy
CPT/HCPCS: 36415; 71045; 74177; 78227; 80048; 80053; 80076; 81003; 81025; 83690; 83735; 83880; 84484; 85025; 85610; 93005; 94760; 96365; 96366; 96375; 99285; A9537; G0378; J2270; J2405; J2543; J2805; J7030; Q9967

== ENCOUNTER 2019-11-20 08:51 | Emergency (ER) | payer OTHER, SELFPAY ==
--- OUTSIDE RECORDS SUMMARY | 2019-11-20 08:53 | XMS REPORT ---
:1970 Author Organization [facility] t Address [address] [place] [address] Dr. Bojorquez [address] [place] [id number] Care Team Providers Name Role Phone Unavailable Unavailable Unavailable Problems This patient has no known problems. Allergies, Adverse Reactions, Alerts This patient has no known allergies or adverse reactions. Medications This patient has no known medications.
--- OUTSIDE RECORDS SUMMARY | 2019-11-20 08:53 | XMS REPORT | Summary of Care ---
:1970 Author Organization [facility] Address [address] [place] [id number] Care Team Providers Name Role Phone Unavailable Primary Care Provider Unavailable Reason for Visit Reason Comments Assessment Encounter Details Date Type Department Care Team Description 03/27/2019 Telephone [facility] Mahi Denton PA-C [facility]- [address], [address] [place] [address] [place] [address] [phone] Allergies No Known Allergiesdocumented as of this encounter (statuses as of 03/28/2019) Medications Medication Sig Dispensed Refills Start Date End Date Status ALPRAZolam 2 mg tablet TAKE ONE (1) 2 10/30/2018 Active TABLET(S) BY MOUTH TWICE A DAY. atenolol 50 mg tablet TAKE ONE (1) 5 11/25/2018 Active TABLET(S) BY MOUTH TWICE A DAY. gabapentin 300 mg capsule TAKE ONE (1) 5 10/25/2018 Active CAPSULE(S) BY MOUTH TWICE A DAY. hydroCHLOROthiazide 25 mg TAKE ONE (1) 5 11/25/2018 Active tablet TABLET(S) BY MOUTH EVERY MORNING. lisinopril 40 mg tablet TAKE ONE (1) 5 11/25/2018 Active TABLET(S) BY MOUTH ONCE A DAY. omeprazole 40 mg capsule TAKE ONE (1) 3 11/25/2018 Active CAPSULE(S) BY MOUTH ONCE A DAY IN THE MORNING. LYRICA 75 mg capsule TAKE ONE (1) 2 09/05/2018 Active CAPSULE(S) BY MOUTH TWICE A DAY. zolpidem 10 mg tablet TAKE ONE (1) 2 11/26/2018 Active TABLET(S) BY MOUTH ONCE A DAY AT BEDTIME NEEDED. medroxyPROGESTERone Take 1 tablet 90 tablet 0 01/03/201904/03 Active (PROVERA) 10 mg by mouth tabletIndications: daily for 90 Postmenopausal bleeding days. medroxyPROGESTERone Take 1 tablet 180 tablet 3 01/17/2019 Active (PROVERA) 10 mg by mouth 2 tabletIndications: (two) times Postmenopausal bleeding, daily. Excessive or frequent menstruation documented as of this encounter (statuses as of 03/28/2019) Active Problems Problem Noted Date Morbid obesity with body mass index of 40.0-49.9 12/03 documented as of this encounter (statuses as of 03/28/2019) Resolved Problems Problem Noted Date Resolved Date Menorrhagia with irregular cycle 01/17/2019 019 documented as of this encounter (statuses as of 03/28/2019) Social History Tobacco Use Types Packs/Day Years Used Date Never Smoker Smokeless Tobacco: Never Used Alcohol Use Drinks/Week oz/Week Comments Yes occasional Sex Assigned at Date Recorded Not on file Job Start Date Occupation Industry Not on file Not on file Not on file Travel History Travel Start Travel End No recent travel history available. documented as of this encounter Last Filed Vital Signs Not on filedocumented in this encounter Plan of Treatment Health Maintenance Due Date Last Done Comments DTaP,Tdap,and Td Vaccines (1 - 1989 Tdap) PAP SMEAR 10/06/1991 MAMMOGRAM 2010 INFLUENZA VACCINE (#1) 2019 PNEUMOCOCCAL 0-64 YEARS COMBINED Aged Out No longer eligible based on SERIES patient's age to complete this topic documented as of this encounter Results Not on filedocumented in this encounter Insurance Payer Benefit Plan / Subscriber ID Effective Dates Phone Addre ss Type Group [facility] ST[facility] xxxxxxxxx 2018-Present Medicaid COMM PLAN - MANAGED MEDICAID documented as of this encounter
--- OUTSIDE RECORDS SUMMARY | 2019-11-20 08:54 | XMS REPORT | Summary of Care ---
:1970 Author Organization [facility] Address [address] [place] [id number] Care Team Providers Name Role Phone Unavailable Primary Care Provider Unavailable Reason for Visit Reason Comments Vaginal Bleeding Encounter Details Date Type Department Care Team Description 04/09/2019 Telephone [facility] Women's Mahi Denton PA-C Vaginal Bleeding [facility]- [address], [address] [place] [id number] [phone] Allergies No Known Allergiesdocumented as of this encounter (statuses as of 04/09/2019) Medications Medication Sig Dispensed Refills Start Date [...] AT BEDTIME NEEDED. medroxyPROGESTERone Take 1 tablet 180 tablet 3 01/17/2019 Active (PROVERA) 10 mg by mouth 2 tabletIndications: (two) times Postmenopausal bleeding, daily. Excessive or frequent menstruation documented as of this encounter (statuses as of 04/09/2019) Active Problems Problem Noted Date Morbid obesity with body mass index of 40.0-49.9 12/03 documented as of this encounter (statuses as of 04/09/2019) Resolved Problems Problem Noted Date Resolved Date Menorrhagia with irregular cycle 01/17/2019 019 documented as of this encounter (statuses as of 04/09/2019) Social History Tobacco Use Types Packs/Day Years [...] / Subscriber ID Effective Dates Phone Addre [facility] STAR xxxxxxxxx 2018-Present Medicaid COMM PLAN - MANAGED MEDICAID documented as of this encounter
[2019-11-20 09:23] LABS: Absolute Lymphocytes (CBC) 1.7 K/uL (0.7-4.9); Basophils % 0.3 % (0-1.3); Lymphocytes % 20.6 % (15.3-44.8); MPV 8.7 fL (7.6-11.3); RBC Red Blood Cell Count 4.74 M/uL (3.86-4.86)
[2019-11-20] MEDS ORDERED: ONDANSETRON 4 MG/2 ML VIAL ONE (09:25)
[2019-11-20] MEDS ORDERED: MORPHINE 4 MG/ML SYR ONE (09:25)
[2019-11-20 09:30] LABS: Protime INR 0.97
[2019-11-20 09:45] LABS: ALT/SGPT 32 U/L (12-78); AST/SGOT 16 U/L (15-37); Albumin 3.8 g/dL (3.4-5.0); Alkaline Phosphatase 82 U/L (45-117); BUN Blood Urea Nitrogen 19 mg/dL (7-18); Bicarbonate 30 mmol/L (21-32); Bilirubin Direct 0.1 mg/dL (0-0.2); Bilirubin Total 0.4 mg/dL (0.2-1.0); Glucose Level 133 mg/dL (74-106); Magnesium 2.1 mg/dL (1.8-2.4); NT PRO-BNP 340 pg/mL (<125); Potassium 3.7 mmol/L (3.5-5.1); Protein, Total 7.9 g/dL (6.4-8.2); Sodium Level 138 mmol/L (136-145); Troponin (Emerg Dept Use Only) < 0.02 ng/mL (0.0-0.045)
[2019-11-20] MEDS ORDERED: LORazepam 2 MG/ML VIAL ONE (09:57)
[2019-11-20] MEDS ORDERED: DIAZEPAM 10 MG/2 ML INJ SYRINGE ONE (10:53)
--- NOTE | 2019-11-20 10:55 | RAD REPORT ---
EXAM DESCRIPTION: CT - Angio Aorta For Dissection - 11/20/2019 10:13 am CLINICAL HISTORY: . Chest and abd pain COMPARISON: 2018 TECHNIQUE: Computed tomography angiography of the chest, abdomen pelvis were obtained. 100 cc Isovue 370 was administered intravenously. Coronal and sagittal reconstruction were performed. MIP 3D reconstruction was performed All CT scans are performed using dose optimization technique as appropriate and may include automated exposure control or mA/KV adjustment according to patient size. FINDINGS: An aortic dissection is not seen. An aortic aneurysm is not displayed. The celiac, SMA and KIRILL are patent . A lung consolidation is not present. A pericardial effusion is not seen. A pleural effusion is not n oted. Fatty liver. Mild gallbladder distention Spleen, pancreas adrenals kidneys demonstrate no significant abnormality. There no evidence diverticulitis. No ascites is noted. IMPRESSION: Negative for an aortic dissection. Mild gallbladder distention
--- NOTE | 2019-11-20 11:41 | ER ---
Nurse's Notes [facility] Name: Shavonne Olmos Age: 49 yrs Sex: Female : 1970 Arrival Date: 11/20/2019 Time: 08:52 Bed 7 Private MD: Diagnosis: Strain of muscle and tendon of back wall of thorax Presentation: 11/19 08:58 Coronavirus screen: Proceed with normal triage. Patient denies a cough. Patient denies ph shortness of breath or difficulty breathing. Patient denies measured and/or subjective temperature greater than 100.4F prior to today's visit. Patient denies travel on a cruise ship or to a country the [facility] currently lists as an affected area. Patient denies contact with known and/or suspected case of COVID-19. Ebola Screen: No symptoms or risks identified at this time. Initial Sepsis Screen: Does the patient meet any 2 criteria? No. Patient's initial sepsis screen is negative. Does the patient have a suspected source of infection? No. Patient's initial sepsis screen is negative. Risk Assessment: Do you want to hurt yourself or someone else? Patient reports no desire to harm self or others. Onset of symptoms was November 20, 2019. 08:58 Method Of Arrival: Ambulatory ph 08:59 Chief complaint: Severe low back pain that radiates to mid back after moving bed 3 days hb ago. Also reports SOB. Coronavirus screen: Proceed with normal triage. Ebola Screen: No symptoms or risks identified at this time. Initial Sepsis Screen: Does the patient meet any 2 criteria? No. Patient's initial sepsis screen is negative. Does the patient have a suspected source of infection? No. Patient's initial sepsis screen is negative. Risk Assessment: Do you want to hurt yourself or someone else? Patient reports no desire to harm self or others. Onset of symptoms was November 19, 2019. 08:59 Acuity: SONAM 3 hb Historical: - Allergies: 08:55 No Known Allergies; ph - PMHx: 08:55 Anxiety; Cholelithiasis; Hypertension; Kidney stones; sciatica; ph - PSHx: 08:55 right arm; ph - Immunization history:: Adult Immunizations unknown. - Social history:: Smoking status: Patient denies any tobacco usage or history of. Screenin:26 Abuse screen: Denies threats or abuse. Denies injuries from another. Nutritional ph screening: No deficits noted. Tuberculosis screening: No symptoms or risk factors identified. Fall Risk None identified. Assessment: 09:25 General: Appears in no apparent distress. uncomfortable, obese, well groomed, Behavior ph is cooperative, appropriate for age, anxious, Denies fever, feeling ill. Pain: Complains of pain in left mid back. Neuro: Level of Consciousness is awake, alert, obeys commands, Oriented to person, place, time, situation. Cardiovascular: Capillary refill < 3 seconds in bilateral fingers Patient's skin is warm and dry. Respiratory: Airway is patent Respiratory effort is even, unlabored. GI: Reports nausea, Patient currently denies abdominal pain, diarrhea, vomiting. : Denies burning with urination, urinary frequency. Derm: Skin is intact, is healthy with good turgor, Skin is pink, warm \\T\\ dry. Musculoskeletal: Circulation, motion, and sensation intact. Range of motion: intact in all extremities. 09:59 Reassessment: Patient appears in no apparent distress at this time. Patient and/or ph family updated on plan of care and expected duration. Pain level reassessed. Patient is alert, oriented x 3, equal unlabored respirations, skin warm/dry/pink. Pt states that nausea has improved, c/o anxiety, states, " I take anxiety medication at home and I'm starting to feel anxious, do you think I can get some anxiety medication?" ERP notified, verbal order received for Ativan IVP, see MAR. 10:53 Reassessment: Patient appears in no apparent distress at this time. Patient and/or ph family updated on plan of care and expected duration. Pain level reassessed. Patient is alert, oriented x 3, equal unlabored respirations, skin warm/dry/pink. Pt continues to c/o pain 04/01, ERP aware and has reassessed pt, verbal order received for IV Valium, see MAR. Vital Signs: 08:59 BP 186 / 102; Pulse 91; Resp 16; Temp 98.3; Pulse Ox 98% on R/A; Weight 104.33 kg; hb Height 5 ft. 2 in. (157.48 cm); Pain 05/01; 08:59 BP 182 / 104; Pulse 70; Resp 20; Pulse Ox 99% ; ph 09:55 BP 147 / 77; Pulse 67; Resp 16; Pulse Ox 98% on R/A; ph 10:55 BP 157 / 104; Pulse 67; Resp 16; Pulse Ox 98% on R/A; ph 11:59 BP 153 / 89; Pulse 68; Resp 18; Temp 97.8; Pulse Ox 99% on R/A; Pain 6/10; ph 08:59 Body Mass Index 42.07 (104.33 kg, 157.48 cm) hb 08:59 did not take BP medication this morning ph ED Course: 08:52 Patient arrived in ED. am2 08:54 Rell Reese MD is Attending Physician. millie 08:54 Farida Woods, SLADE is Primary Nurse. ph 08:58 Mohit Escalera PA is PHCP. [facility] 09:00 Triage completed. hb 09:00 Arm band placed on. hb 09:15 Initial lab(s) drawn, by me, sent to lab. Inserted saline lock: 22 gauge in left ph antecubital area, using aseptic technique. 09:27 Patient has correct armband on for positive identification. Placed in gown. Bed in low ph position. Call light in reach. Side rails up X 1. Pulse ox on. NIBP on. Door closed. Noise minimized. Warm blanket given. 10:13 CT Aorta for Dissection In Process Unspecified. EDMS 11:58 No provider procedures requiring assistance completed. IV discontinued, intact, ph bleeding controlled, No redness/swelling at site. Pressure dressing applied. Administered Medications: 09:23 Drug: Zofran (Ondansetron) 4 mg Route: IVP; Site: left antecubital; ph 10:05 Follow up: Response: No adverse reaction; Nausea is decreased ph 09:25 Drug: morphine 4 mg Route: IVP; Site: left antecubital; ph 10:05 Follow up: Response: No adverse reaction ph 09:53 CANCELLED (Duplicate Order): Ativan 0.5 mg IM once ph 09:53 Drug: Ativan 0.5 mg Route: IVP; Site: left antecubital; ph 11:57 Follow up: Response: No adverse reaction ph 10:54 Drug: Valium 5 mg Route: IVP; Site: left antecubital; ph 11:58 Follow up: Response: No adverse reaction; Pain is decreased ph Outcome: 11:40 Discharge ordered by MD. kwong 11:59 Discharged to home ambulatory. ph 11:59 Condition: improved 11:59 Discharge instructions given to patient, Instructed on discharge instructions, follow up and referral plans. medication usage, Demonstrated understanding of instructions, follow-up care, medications, Prescriptions given X 2. 12:00 Patient left the ED. ph Signatures: Dispatcher [employer] EDMS Rell Reese MD MD cha Mickail, Joel, PA PA jmm Hall, Patricia, RN RN Karishma Grande RN RN Amberly Coppola formerly [facility], [facility]
--- NOTE | 2019-11-20 11:41 | EDPHYS ---
Physician Documentation [facility] Name: Shavonne Olmos Age: 49 yrs Sex: Female : 1970 Arrival Date: 11/20/2019 Time: 08:52 Bed 7 Private MD: ED Physician Rell Reese HPI: 11/19 08:54 This 49 yrs old Female presents to ER via Ambulatory with complaints of Back jmm Pain. 08:54 The patient presents with pain that is acute. Onset: The symptoms/episode jmm began/occurred acutely, 1 day(s) ago. The pain radiates to the left scapular area, left subscapular area and left mid back. Associated signs and symptoms: Pertinent positives: shortness of breath, Pertinent negatives: chest pain. Modifying factors: The patient symptoms are alleviated by nothing, the patient symptoms are aggravated by movement. This is a 49 year old female with a history of anxiety, that presents to the ED with complaints of left upper back pain which began after heavy lifting performed. Worsened with movement and deep inspiration. . Historical: - Allergies: 08:55 No Known Allergies; ph - PMHx: 08:55 Anxiety; Cholelithiasis; Hypertension; Kidney stones; sciatica; ph - PSHx: 08:55 right arm; ph - Immunization history:: Adult Immunizations unknown. - Social history:: Smoking status: Patient denies any tobacco usage or history of. ROS: 08:54 Constitutional: Negative for fever, chills, and weight loss, Cardiovascular: Negative jmm for chest pain, palpitations, and edema, Respiratory: Negative for shortness of breath, cough, wheezing, and pleuritic chest pain, Abdomen/GI: Negative for abdominal pain, nausea, vomiting, diarrhea, and constipation. 08:54 MS/Extremity: Negative for injury and deformity. 08:54 Back: Positive for pain with movement. 08:54 All other systems are negative. Exam: 08:54 Head/Face: atraumatic. Eyes: EOMI, no conjunctival erythema appreciated ENT: Moist jmm Mucus Membranes Neck: Trachea midline, Supple Chest/axilla: Normal chest wall appearance and motion. Cardiovascular: Regular rate and rhythm. No edema appreciated Respiratory: Normal respirations, no respiratory distress appreciated Abdomen/GI: Non distended, soft 08:54 Skin: General appearance color normal MS/ Extremity: Moves all extremities, no obvious deformities appreciated, no edema noted to the lower extremities Neuro: Awake and alert, normal gait Psych: Behavior is normal, Mood is normal, Patient is cooperative and pleasant 08:54 Constitutional: The patient appears alert, awake, uncomfortable. 08:54 Back: left paraspinal thoracic pain on palpation, no midline tenderness, . Vital Signs: 08:59 BP 186 / 102; Pulse 91; Resp 16; Temp 98.3; Pulse Ox 98% on R/A; Weight 104.33 kg; hb Height 5 ft. 2 in. (157.48 cm); Pain 10/10; 08:59 BP 182 / 104; Pulse 70; Resp 20; Pulse Ox 99% ; ph 09:55 BP 147 / 77; Pulse 67; Resp 16; Pulse Ox 98% on R/A; ph 10:55 BP 157 / 104; Pulse 67; Resp 16; Pulse Ox 98% on R/A; ph 11:59 BP 153 / 89; Pulse 68; Resp 18; Temp 97.8; Pulse Ox 99% on R/A; Pain 6/10; ph 08:59 Body Mass Index 42.07 (104.33 kg, 157.48 cm) hb 08:59 did not take BP medication this morning ph MDM: 08:54 Patient medically screened. millie 11:38 Data reviewed: vital signs, nurses notes. Counseling: I had a detailed discussion with elenita the patient and/or guardian regarding: the historical points, exam findings, and any diagnostic results supporting the discharge/admit diagnosis, lab results, radiology results, the need for outpatient follow up, to return to the emergency department if symptoms worsen or persist or if there are any questions or concerns that arise at home. ED course: Patient is alert and non toxic in appearance in the ED. Pain has decreased. Patient is advised to follow up with pcp. CTA is negative. I do not suspect PE or ACS. Patient is otherwise given strict return precautions. Patient understood and agrees with the plan of care. . 11/19 09:06 Order name: Basic Metabolic Panel; Complete Time: 10:35 [facility] 11/19 09:06 Order name: CBC with Diff; Complete Time: 10:35 [facility] 11/19 09:06 Order name: LFT's; Complete Time: 10:35 [facility] 11/19 09:06 Order name: Magnesium; Complete Time: 10:35 [facility] 11/19 09:06 Order name: NT PRO-BNP; Complete Time: 10:35 [facility] 11/19 09:06 Order name: PT-INR; Complete Time: 10:35 [facility] 11/19 09:06 Order name: Troponin (emerg Dept Use Only); Complete Time: 10:35 [facility] 11/19 09:06 Order name: CT Aorta for Dissection; Complete Time: 11:03 [facility] 11/19 09:06 Order name: Urine Drug Screen; Complete Time: 12:00 [facility] 11/19 11:46 Order name: Urine Dipstick--Ancillary (enter results) 11/19 11:46 Order name: Urine --Ancillary (enter results) 11/19 09:06 Order name: EKG; Complete Time: 09:07 [facility] 11/19 09:06 Order name: Cardiac monitoring; Complete Time: 09:17 [facility] 11/19 09:06 Order name: IV Saline Lock; Complete Time: 09:17 [facility] 11/19 09:06 Order name: Labs collected and sent; Complete Time: 09:17 11/19 09:06 Order name: O2 Per Protocol; Complete Time: 09:17 11/19 09:06 Order name: O2 Sat Monitoring; Complete Time: 09:17 [facility] Administered Medications: 09:23 Drug: Zofran (Ondansetron) 4 mg Route: IVP; Site: left antecubital; ph 10:05 Follow up: Response: No adverse reaction; Nausea is decreased ph 09:25 Drug: morphine 4 mg Route: IVP; Site: left antecubital; ph 10:05 Follow up: Response: No adverse reaction ph 09:53 CANCELLED (Duplicate Order): Ativan 0.5 mg IM once ph 09:53 Drug: Ativan 0.5 mg Route: IVP; Site: left antecubital; ph 11:57 Follow up: Response: No adverse reaction ph 10:54 Drug: Valium 5 mg Route: IVP; Site: left antecubital; ph 11:58 Follow up: Response: No adverse reaction; Pain is decreased ph Disposition: 14:54 Co-signature as Attending Physician, Rell Reese MD I agree with the assessment and millie plan of care. Disposition: 04/30/20 11:40 Discharged to Home. Impression: Strain of muscle and tendon of back wall of thorax. - Condition is Stable. - Discharge Instructions: Thoracic Strain. - Prescriptions for Valium 5 mg Oral Tablet - take 1 tablet by ORAL route every 8 hours As needed; 12 tablet. Medrol (Maurice) 4 mg Oral Tablets, Dose Pack - take 1 tablet by ORAL route as directed - follow package instructions; 1 packet. - Medication Reconciliation Form, Thank You Letter, Antibiotic Education, Prescription Opioid Use form. - Follow up: Private Physician; When: 2 - 3 days; Reason: Recheck today's complaints, Continuance of care, Re-evaluation by your physician. Signatures: Dispatcher [employer] EDRell Bennett MD MD cha Mickail, Joel, PA PA jmm Hall, Patricia, RN RN ph Corrections: (The following items were deleted from the chart) 09:53 09:53 Ativan 0.5 mg IM once ordered. ph ph 12:00 11:40 11/20/2019 11:40 Discharged to Home. Impression: Strain of muscle and tendon of ph back wall of thorax. Condition is Stable. Forms are Medication Reconciliation Form, Thank You Letter, Antibiotic Education, Prescription Opioid Use. Follow up: Private Physician; When: 2 - 3 days; Reason: Recheck today's complaints, Continuance of care, Re-evaluation by your physician. elenita
[2019-11-20 11:54] LABS: Barbiturates NEGATIVE (NEGATIVE); Benzodiazepines POSITIVE (NEGATIVE); Cocaine NEGATIVE (NEGATIVE); METHAMPHETAM NEGATIVE (NEGATIVE); Methadone NEGATIVE (NEGATIVE); Opiates POSITIVE (NEGATIVE); Phencyclidine NEGATIVE (NEGATIVE); THC Cannibis NEGATIVE (NEGATIVE)
[2019-11-20 12:13] VITALS: BP 153/89; TEMP 97.8; O2SAT 99
[2019-11-20 12:21] LABS: Urine Blood NEGATIVE (NEG); Urine Glucose NEGATIVE (NEG); Urine Protein NEGATIVE (NEG); Urine pH 5.5 (5.0-7.0)
--- NOTE | 2019-11-20 14:41 | EKG ---
Test Date: 2019-11-20 Test Time: 09:43:06 Research Lab Assistant: ALEC MEASUREMENT RESULTS: Intervals: Rate: 73 WY: 154 QRSD: 74 QT: 420 QTc: 462 [place]: P: 57 WY: 154 QRS: 26 T: 54 INTERPRETIVE STATEMENTS: Normal sinus rhythm Possible Anterior infarct, age undetermined Abnormal ECG Compared to ECG 01/28/2019 15:34:58 Myocardial infarct finding now present Sinus bradycardia no longer present Electronically Signed On 11-20-19 14:40:59 CDT by Rory Gonzalez
== END 2019-11-20 12:00 | disposition home or self-care (01) ==
LOC: ER 08:51
DX: S29.012A Strain of muscle and tendon of back wall of thorax, initial encounter (principal); X50.0XXA Overexertion from strenuous movement or load, initial encounter; Y93.89 Activity, other specified; Y92.9 Unspecified place or not applicable; I10 Essential (primary) hypertension
CPT/HCPCS: 36415; 71275; 74175; 80048; 80076; 80307; 81003; 81025; 83735; 83880; 84484; 85025; 85610; 93005; 96374; 96375; 99284; J2405; J3360

== ENCOUNTER 2020-10-24 21:30 | Emergency (ER) | payer OTHER, SELFPAY ==
[2020-10-24] MEDS ORDERED: NA CHLORIDE 0.9% 1,000 ML ONE (22:58)
[2020-10-24] MEDS ORDERED: KETOROLAC 30 MG/ML INJ ONE (22:58)
[2020-10-24 23:11] LABS: Absolute Lymphocytes (CBC) 2.7 K/uL (0.7-4.9); Basophils % 0.4 % (0-1.3); Hematocrit 42.1 % (36.0-45.0); Lymphocytes % 30.4 % (15.3-44.8); MPV 9.5 fL (7.6-11.3); RBC Red Blood Cell Count 4.91 M/uL (3.86-4.86)
[2020-10-24 23:48] LABS: ALT/SGPT 151 U/L (12-78); AST/SGOT 36 U/L (15-37); Albumin 3.6 g/dL (3.4-5.0); Alkaline Phosphatase 107 U/L (45-117); BUN Blood Urea Nitrogen 20 mg/dL (7-18); Bicarbonate 29 mmol/L (21-32); Bilirubin Direct 0.1 mg/dL (0-0.2); Bilirubin Total 0.4 mg/dL (0.2-1.0); Glucose Level 236 mg/dL (74-106); NT PRO-BNP 399 pg/mL (<125); Potassium 3.8 mmol/L (3.5-5.1); Protein, Total 7.4 g/dL (6.4-8.2); Sodium Level 137 mmol/L (136-145); Troponin (Emerg Dept Use Only) < 0.02 ng/mL (0.0-0.045)
[2020-10-24] MEDS ORDERED: ACETAMINOPHEN 500 MG TAB ONE (23:59)
--- NOTE | 2020-10-25 00:21 | EDPHYS ---
Physician Documentation [facility] Name: Shavonne Gee Age: 50 yrs Sex: Female : 1970 Arrival Date: 10/24/2020 Time: 21:35 Bed 16 Private MD: ED Physician Mark Morales HPI: 10/24 22:37 This 50 yrs old Female presents to ER via Ambulatory with complaints of tw4 Shortness Of Breath, High Blood Pressure, High Blood Sugar. 22:37 The patient has shortness of breath at rest. Onset: The symptoms/episode began/occurred tw4 today. Duration: The symptoms are continuous, and are unchanged since they started. The patient's shortness of breath has no apparent modifying factors. Associated signs and symptoms: The patient has no apparent associated signs or symptoms. Severity of symptoms: At their worst the symptoms were moderate in the emergency department the symptoms are unchanged. The patient has not experienced similar symptoms in the past. [employer]: 22:09 LMP N/A - Post-menopause ca1 Historical: - Allergies: 22:09 No Known Allergies; ca1 - Home Meds: 22:49 atenolol 50 mg Oral tab 1 tab once daily for Hypertension [Active]; valsartan 320 mg rr5 oral tab 1 tab once daily [Active]; Xanax Oral [Active]; - PMHx: 22:09 Anxiety; Cholelithiasis; Hypertension; Kidney stones; sciatica; ca1 - PSHx: 22:09 right arm; ca1 - Immunization history:: Flu vaccine is not up to date. - Social history:: Smoking status: Patient denies any tobacco usage or history of. ROS: 22:37 Constitutional: Negative for fever, chills, and weight loss, Eyes: Negative for injury, tw4 pain, redness, and discharge, Neck: Negative for injury, pain, and swelling, Cardiovascular: Negative for chest pain, palpitations, and edema, Abdomen/GI: Negative for abdominal pain, nausea, vomiting, diarrhea, and constipation, Back: Negative for injury and pain, MS/Extremity: Negative for injury and deformity, Skin: Negative for injury, rash, and discoloration, Neuro: Negative for headache, weakness, numbness, tingling, and seizure. 22:37 Respiratory: Positive for shortness of breath, Negative for cough, dyspnea on exertion, hemoptysis, orthopnea, pleurisy. Exam: 22:37 Constitutional: This is a well developed, well nourished patient who is awake, alert, tw4 and in no acute distress. Head/Face: Normocephalic, atraumatic. Chest/axilla: Normal chest wall appearance and motion. Nontender with no deformity. No lesions are appreciated. Cardiovascular: Regular rate and rhythm with a normal S1 and S2. No gallops, murmurs, or rubs. Normal PMI, no JVD. No pulse deficits. Respiratory: Lungs have equal breath sounds bilaterally, clear to auscultation and percussion. No rales, rhonchi or wheezes noted. No increased work of breathing, no retractions or nasal flaring. Abdomen/GI: Soft, non-tender, with normal bowel sounds. No distension or tympany. No guarding or rebound. No evidence of tenderness throughout. Back: No spinal tenderness. No costovertebral tenderness. Full range of motion. Skin: Warm, dry with normal turgor. Normal color with no rashes, no lesions, and no evidence of cellulitis. MS/ Extremity: Pulses equal, no cyanosis. Neurovascular intact. Full, normal range of motion. Neuro: Awake and alert, GCS 15, oriented to person, place, time, and situation. Cranial nerves II-XII grossly intact. Motor strength 5/5 in all extremities. Sensory grossly intact. Cerebellar exam normal. Normal gait. Vital Signs: 22:05 BP 141 / 82; Pulse 71; Resp 20; Temp 97.6(TE); Pulse Ox 97% on R/A; Weight 107.95 kg ca1 (R); Height 5 ft. 2 in. (157.48 cm) (R); Pain 9/10; 22:53 BP 139 / 69; Pulse 68; Resp 17; Pulse Ox 99% ; rr5 23:30 BP 125 / 65; Pulse 69; Resp 17; Pulse Ox 100% ; rr5 10/25 00:35 BP 112 / 64; Pulse 65; Resp 19; Pulse Ox 99% ; rr5 10/24 22:05 Body Mass Index 43.53 (107.95 kg, 157.48 cm) ca1 MDM: 10/24 22:11 Patient medically screened. tw4 10/25 02:20 Differential diagnosis: Anemia Anxiety Reaction CHF exacerbation, Myocardial Infarction tw4 reactive airway disease, Sepsis. Antibiotic administration: Not indicated, the patient does not have an appreciated infiltrate. Data reviewed: vital signs, nurses notes. Data reviewed: lab test result(s), CBC, electrolytes. Data interpreted: Pulse oximetry: Interpretation: normal. Test interpretation: by ED physician or midlevel provider: plain radiologic studies. Counseling: I had a detailed discussion with the patient and/or guardian regarding: the historical points, exam findings, and any diagnostic results supporting the discharge/admit diagnosis. Special discussion: I discussed with the patient/guardian in detail that at this point there is no indication for admission to the hospital. It is understood, however, that if the symptoms persist or worsen the patient needs to return immediately for re-evaluation. 10/24 22:02 Order name: Basic Metabolic Panel; Complete Time: 23:50 10/24 23:51 Interpretation: Normal except: GLUC 236; BUN 20; GFR 68. 10/24 22:02 Order name: CBC with Diff; Complete Time: 23:50 10/24 23:51 Interpretation: Normal except: RBC 4.91; MCV 85.7. 10/24 22:02 Order name: LFT's; Complete Time: 23:50 10/24 23:51 Interpretation: Normal except: ALT 151; GLOB 3.8; A/G 0.9. 10/24 22:02 Order name: Magnesium; Complete Time: 23:50 10/24 23:51 Interpretation: Within normal limits: MG 2.0. 10/24 22:02 Order name: NT PRO-BNP; Complete Time: 23:50 10/24 23:51 Interpretation: Abnormal: NT PRO-BNP 399. 10/24 22:02 Order name: PT-INR; Complete Time: 23:34 10/24 23:34 Interpretation: Normal except: PT 11.5. 10/24 22:02 Order name: Troponin (emerg Dept Use Only); Complete Time: 23:50 10/24 23:51 Interpretation: Within normal limits: TROPED < 0.02. 10/24 22:02 Order name: XRAY Chest (1 view) 10/24 22:41 Order name: Glucose, Ancillary Testing; Complete Time: 23:34 EDMS 10/24 23:34 Interpretation: Normal except: GLUC,ANCIL 258. tw4 10/25 00:22 Order name: Glucose, Ancillary Testing; Complete Time: 00:24 EDMS 10/25 00:24 Interpretation: Abnormal: GLUC,ANCIL 258. tw4 10/24 22:02 Order name: EKG; Complete Time: 22:03 tw4 10/24 22:02 Order name: Cardiac monitoring; Complete Time: 22:47 tw4 10/24 22:02 Order name: EKG - Nurse/Tech; Complete Time: 22:47 tw4 10/24 22:02 Order name: IV Saline Lock; Complete Time: 22:47 tw4 10/24 22:02 Order name: Labs collected and sent; Complete Time: 22:47 tw4 10/24 22:02 Order name: O2 Per Protocol; Complete Time: 22:47 tw4 10/24 22:02 Order name: O2 Sat Monitoring; Complete Time: 22:47 tw4 EC/04 22:37 Rate is 67 beats/min. Rhythm is regular. QRS [place] is Normal. VT interval is normal. QRS tw4 interval is normal. QT interval is normal. No Q waves. T waves are Normal. No ST changes noted. Clinical impression: Normal ECG. Interpreted by me. Reviewed by me. Administered Medications: 22:45 Drug: NS 0.9% 1000 ml Route: IV; Rate: 1 bolus; Site: left forearm; rr5 10/25 00:21 Follow up: Response: No adverse reaction; IV Status: Completed infusion; IV Intake: rr5 1000ml 10/24 22:45 Drug: TORadol 30 mg Route: IVP; Site: left forearm; rr5 23:45 Follow up: Response: No adverse reaction; Pain is unchanged, physician notified rr5 23:45 Drug: Tylenol 1000 mg Route: PO; zb 10/25 00:20 Follow up: Response: No adverse reaction rr5 00:22 Drug: Insulin Regular Human 5 units {Co-Signature: em (Gómez Barrow RN).} Route: IVP; rr5 Site: left forearm; 00:39 Follow up: Response: No adverse reaction; Blood sugar is lowered rr5 Disposition: 10/25/20 00:20 Discharged to Home. Impression: Hyperglycemia, unspecified. - Condition is Stable. - Discharge Instructions: Hyperglycemia, Blood Glucose Monitoring, Adult. - Medication Reconciliation Form, Thank You Letter, Antibiotic Education, Prescription Opioid Use form. - Follow up: Private Physician; When: Upon discharge from the Emergency Department; Reason: Recheck today's complaints, Continuance of care, Re-evaluation by your physician. - Problem is new. - Symptoms have improved. Signatures: Dispatcher [employer] EDMark Dyer MD MD tw4 Sharath Grover RN RN rr5 Amna Tyson RN RN ca1 Brown, Zipporah, RN RN zb Gómez Barrow RN em Corrections: (The following items were deleted from the chart) 00:39 00:20 10/25/2020 00:20 Discharged to Home. Impression: Hyperglycemia, unspecified. rr5 Condition is Stable. Forms are Medication Reconciliation Form, Thank You Letter, Antibiotic Education, Prescription Opioid Use. Follow up: Private Physician; When: Upon discharge from the Emergency Department; Reason: Recheck today's complaints, Continuance of care, Re-evaluation by your physician. Problem is new. Symptoms have improved. tw4
--- NOTE | 2020-10-25 00:21 | ER ---
Nurse's Notes [facility] Name: Shavonne Gee Age: 50 yrs Sex: Female : 1970 Arrival Date: 10/24/2020 Time: 21:35 Bed 16 Private MD: Diagnosis: Hyperglycemia, unspecified Presentation: 10/24 22:05 Chief complaint: Patient states: Newly diagnosed diabetic, BGL at home was 296. BP at ca1 home 173/103. Reports SOB x 3 days. Chest pain, intermittent, x 3 days. Reports dry cough. Reports headache, pressure on eyes. Coronavirus screen: Client denies travel out of the [place] in the last 14 days. cough unrelated to allergies, shortness of breath, Client presents with at least one sign or symptom that may indicate coronavirus-19. Standard/surgical mask placed on the client. Provider contacted for isolation considerations. Ebola Screen: Patient negative for fever greater than or equal to 101.5 degrees Fahrenheit, and additional compatible Ebola Virus Disease symptoms Patient denies exposure to infectious person. Patient denies travel to an Ebola-affected area in the 21 days before illness onset. No symptoms or risks identified at this time. Initial Sepsis Screen: Does the patient meet any 2 criteria? No. Patient's initial sepsis screen is negative. Does the patient have a suspected source of infection? No. Patient's initial sepsis screen is negative. Risk Assessment: Do you want to hurt yourself or someone else? Patient reports no desire to harm self or others. Onset of symptoms was October 24, 2020. 22:05 Method Of Arrival: Ambulatory ca1 22:05 Acuity: SONAM 3 ca1 Triage Assessment: 22:30 Respiratory: the patient has mild shortness of breath. rr5 22:30 General: Appears in no apparent distress. uncomfortable, Behavior is anxious. 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 - Social history:: Smoking status: Patient denies any tobacco usage or history of. Screenin:49 Abuse screen: Denies threats or abuse. Denies injuries from another. Nutritional rr5 screening: No deficits noted. Tuberculosis screening: No symptoms or risk factors identified. Fall Risk IV access (20 points). Total Naidu Fall Scale indicates No Risk (0-24 pts). Assessment: 22:30 General: Appears in no apparent distress. uncomfortable, Behavior is anxious. Pain: rr5 Complains of pain in chest Pain currently is 10 out of 10 on a pain scale. Quality of pain is described as aching, Pain began gradually, Is intermittent. Neuro: Level of Consciousness is awake, alert, Oriented to person, place, time. Cardiovascular: Reports high BP Capillary refill < 3 seconds Patient's skin is warm and dry. Rhythm is regular. Respiratory: Reports shortness of breath Airway is patent Respiratory effort is even, unlabored, Respiratory pattern is regular, symmetrical, GI: No signs and/or symptoms were reported involving the gastrointestinal system. : No signs and/or symptoms were reported regarding the genitourinary system. EENT: No signs and/or symptoms were reported regarding the EENT system. Derm: Skin is intact, is healthy with good turgor, Skin temperature is warm. 22:30 Musculoskeletal: Capillary refill < 3 seconds. rr5 23:30 Reassessment: Patient appears in no apparent distress at this time. Patient is alert, rr5 oriented x 3, equal unlabored respirations, skin warm/dry/pink. ED provider aware with order made and carried out Patient states symptoms have not improved. 04 00:23 Reassessment: Patient appears in no apparent distress at this time. Patient and/or rr5 family updated on plan of care and expected duration. Pain level reassessed. Patient is alert, oriented x 3, equal unlabored respirations, skin warm/dry/pink. Patient states feeling better. Patient states symptoms have improved. 00:23 Reassessment: discharge instruction given and explained without complaints made. rr5 Vital Signs: 10/24 22:05 BP 141 / 82; Pulse 71; Resp 20; Temp 97.6(TE); Pulse Ox 97% on R/A; Weight 107.95 kg ca1 (R); Height 5 ft. 2 in. (157.48 cm) (R); Pain 9/10; 22:53 BP 139 / 69; Pulse 68; Resp 17; Pulse Ox 99% ; rr5 23:30 BP 125 / 65; Pulse 69; Resp 17; Pulse Ox 100% ; rr5 04 00:35 BP 112 / 64; Pulse 65; Resp 19; Pulse Ox 99% ; rr5 10/24 22:05 Body Mass Index 43.53 (107.95 kg, 157.48 cm) ca1 ED Course: 10/24 21:35 Patient arrived in ED. es 22:02 Mark Morales MD is Attending Physician. tw4 22:09 Triage completed. ca1 22:09 Arm band placed on right wrist. ca1 22:14 Sharath Grover, SLADE is Primary Nurse. rr5 22:30 Patient has correct armband on for positive identification. Bed in low position. Call rr5 light in reach. lunchroom monitor on. Pulse ox on. NIBP on. 22:35 EKG done, by ED staff, reviewed by Mark Morales MD. rr5 22:39 XRAY Chest (1 view) In Process Unspecified. EDMS 22:40 Inserted saline lock: 20 gauge in left forearm, using aseptic technique. Blood rr5 collected. 04 00:35 No provider procedures requiring assistance completed. IV discontinued, intact, rr5 bleeding controlled, No redness/swelling at site. Pressure dressing applied. Administered Medications: 10/24 22:45 Drug: NS 0.9% 1000 ml Route: IV; Rate: 1 bolus; Site: left forearm; rr5 10/25 00:21 Follow up: Response: No adverse reaction; IV Status: Completed infusion; IV Intake: rr5 1000ml 10/24 22:45 Drug: TORadol 30 mg Route: IVP; Site: left forearm; rr5 23:45 Follow up: Response: No adverse reaction; Pain is unchanged, physician notified rr5 23:45 Drug: Tylenol 1000 mg Route: PO; zb 10/25 00:20 Follow up: Response: No adverse reaction rr5 00:22 Drug: Insulin Regular Human 5 units {Co-Signature: em (Gómez Barrow RN).} Route: IVP; rr5 Site: left forearm; 00:39 Follow up: Response: No adverse reaction; Blood sugar is lowered rr5 Intake: 00:21 IV: 1000ml; Total: 1000ml. rr5 Outcome: 00:20 Discharge ordered by . tw4 00:35 Discharged to home ambulatory. rr5 00:35 Condition: stable 00:35 Discharge instructions given to patient, Instructed on discharge instructions, follow up and referral plans. medication usage, Demonstrated understanding of instructions, follow-up care, medications, Prescriptions given X 1. 00:39 Patient left the ED. rr5 Signatures: Dispatcher [employer] Debbie Richardson Terrence, MD MD tw4 Sharath Grover RN RN rr5 Amna Tyson RN RN Berna Arriaga RN RN zb Gómez Barrow RN em
[2020-10-25] MEDS ORDERED: INSULIN -REGULAR HUMAN 50 UNIT/0.5 ML ML ONE (00:30)
[2020-10-25 02:08] VITALS: TEMP 97.6
[2020-10-25 02:10] VITALS: BP 139/69; O2SAT 99
--- NOTE | 2020-10-25 08:19 | RAD REPORT ---
EXAM DESCRIPTION: RAD - Chest Single View - 10/24/2020 10:39 pm CLINICAL HISTORY: CHEST PAIN COMPARISON: January 2019 TECHNIQUE: AP portable chest image was obtained 10/24/2020 10:39 pm . FINDINGS: Lungs are clear. Portable technique and overlying soft tissues accentuate interstitial pat tern. Heart size and vasculature are slightly increased from comparison. No measurable pleural effusi on and no pneumothorax. No acute bony abnormality seen. No acute aortic findings suspected. IMPRESSION: No peripheral mass or consolidation. Heart size and vasculature are slightly increased over the 2019 comparison. Correlation is needed wit h any mild failure or volume overload findings.
--- NOTE | 2020-10-25 08:55 | EKG ---
Test Date: 2020-10-24 Test Time: 22:22:38 Decker Operator: RR MEASUREMENT RESULTS: Intervals: Rate: 67 IN: 138 QRSD: 78 QT: 446 QTc: 471 [place]: P: 40 IN: 138 QRS: 28 T: 68 INTERPRETIVE STATEMENTS: Normal sinus rhythm Normal ECG No previous ECG available for comparison Electronically Signed On 10-25-20 08:55:10 CDT by Rory Gonzalez
== END 2020-10-25 00:39 | disposition home or self-care (01) ==
LOC: ER 21:30
DX: R73.9 Hyperglycemia, unspecified (principal); R06.02 Shortness of breath; I10 Essential (primary) hypertension; F41.9 Anxiety disorder, unspecified
CPT/HCPCS: 93005; 85025; 80048; 36415; 83735; 85610; 82947 ×3; 80076; 84484; 83880; 71045; J7030; 96361; 96374; 96375; 99285

== ENCOUNTER 2021-01-03 12:32 | Emergency (ER) | payer OTHER ==
--- NOTE | 2021-01-03 14:13 | ER ---
Nurse's Notes [facility] Name: Shavonne Gee Age: 50 yrs Sex: Female : 1970 Arrival Date: 01/03/2021 Time: 12:40 Bed External Waiting Private MD: Diagnosis: Presentation: 01/03 12:58 Chief complaint: Patient states: nausea and fatigue that began 1 hour ago. Pt believes ss it may be because she took too much insulin this AM. BGL 109 in triage. Pt reports her BGL at home was 169. Coronavirus screen: Client denies travel out of the [place] in the last 14 days. Ebola Screen: Patient denies exposure to infectious person. Patient denies travel to an Ebola-affected area in the 21 days before illness onset. Initial Sepsis Screen: Does the patient meet any 2 criteria? No. Patient's initial sepsis screen is negative. Does the patient have a suspected source of infection? No. Patient's initial sepsis screen is negative. Risk Assessment: Do you want to hurt yourself or someone else? Patient reports no desire to harm self or others. Onset of symptoms was January 03, 2021. 12:58 Method Of Arrival: Ambulatory ss 12:58 Acuity: SONAM 3 ss Historical: - Allergies: 13:00 No Known Allergies; ss - PMHx: 13:00 Anxiety; Cholelithiasis; Hypertension; Kidney stones; sciatica; ss - PSHx: 13:00 right arm; ss - Immunization history:: Adult Immunizations unknown. Assessment: 13:36 Reassessment: pt not in room. iw Vital Signs: 12:58 BP 128 / 72; Pulse 54; Resp 16; Temp 97.5(TE); Pulse Ox 96% on R/A; Pain 0/10; ss ED Course: 12:40 Patient arrived in ED. ds1 12:58 Arm band placed on left wrist. ss 13:00 Triage completed. ss 13:11 Vida Pizano RN is Primary Nurse. tr6 13:25 Rell Escobar PA is PHCP. cp 13:25 Rell Reese MD is Attending Physician. cp Administered Medications: No medications were administered Point of Care Testing: Blood Glucose: 12:58 Blood Glucose: 109 mg/dL; ss Ranges: Outcome: 13:36 Eloped from patient exam room, before seeing physician Time discovered patient gone: iw January 03, 2021 at 13:36 14:13 Patient left the ED. iw Signatures: Jyotsna Johnson ds1 Rachel Palacios RN RN iw Latanya Jorge RN RN Rell Barry PA PA cp Ramnanan, Tiffany, RN RN tr6
[2021-01-03 14:17] VITALS: BP 128/72; TEMP 97.5; O2SAT 96
== END 2021-01-03 14:13 | disposition left against medical advice (07) ==
LOC: ER 12:32
DX: Z53.21 Procedure and treatment not carried out due to patient leaving prior to being seen by health care provider (principal)
CPT/HCPCS: 82947; 99281